=== PATIENT | female | born 1975 | race Caucasian/White ===

== ENCOUNTER 2018-11-15 17:21 | Inpatient (IN) | payer OTHER ==
[~2018-11-15] VITALS: Ht 152.4 cm; Wt 75.5 kg
[2018-11-15 22:02] VITALS: Ht 152.4 cm; Wt 75.5 kg
[2018-11-15] MEDS ORDERED: ACETAMINOPHEN 325 MG TAB PO PRN (22:30)
[2018-11-15] MEDS ORDERED: morphine 2 MG INJ IV PRN (22:30)
[2018-11-15] MEDS ORDERED: DOCUSATE SODIUM 100 MG CAP PO PRN (22:30)
[2018-11-15] MEDS ORDERED: ONDANSETRON 4 MG INJ IV PRN (22:30)
[2018-11-15] MEDS ORDERED: NACL 0.9% 3 ML SYG IV SCH (22:30)
[2018-11-15] MEDS ORDERED: BISACODYL (EC) 5 MG TAB PO PRN (22:30)
[2018-11-15 22:33] VITALS: BP 113/58; PULSE 68; RESP 20
[2018-11-15] MEDS ORDERED: CEFTRIAXONE 1 GM/50 ML (PMX) 50 ML IVPB ONE (22:35)
[2018-11-15] MEDS: CEFTRIAXONE 1 GM/50 ML (PMX) 50 ML IVPB SCH (22:51)
[2018-11-15] MEDS: SOD CHLORIDE 0.9% 1,000 ML IV SCH (22:51)
[2018-11-16 01:59] VITALS: BP 101/57; PULSE 59; RESP 20
[2018-11-16 08:00] VITALS: BP 111/67; PULSE 63; RESP 16
[2018-11-16] MEDS: SOD CHLORIDE 0.9% 1,000 ML IV SCH (11:23)
[2018-11-16 14:00] VITALS: BP 120/68; PULSE 66; RESP 16
[2018-11-16 19:45] VITALS: BP 122/69; PULSE 65; RESP 18
[2018-11-16] MEDS: CEFTRIAXONE 1 GM/50 ML (PMX) 50 ML IVPB SCH (22:34)
[2018-11-17 02:30] VITALS: BP 121/95; PULSE 80; RESP 18
[2018-11-17 08:00] VITALS: BP 115/72; PULSE 68; RESP 18
== END 2018-11-17 18:54 | disposition home or self-care (01) | DRG 392 ==
LOC: PP2 21:46
PROVIDERS: ADMIT Internal Medicine; ATTEND Internal Medicine
DX: A08.4 Viral intestinal infection, unspecified (principal); N39.0 Urinary tract infection, site not specified; E66.9 Obesity, unspecified; Z68.32 Body mass index [BMI] 32.0-32.9, adult
CPT/HCPCS: 80048; 80061; 83036; 83735; 84100; 84443; 85025; 86674; 87045; 87075; 87081; 87177; J0696; J7030